=== PATIENT | male | born 1975 | race African-American/Black ===

== ENCOUNTER → 2020-01-21 | Outpatient (CLI) | payer OTHER ==
[2020-01-21 16:25] LABS: SEMEN APPEARANCE OPAQUE (OPAQUE); SEMEN VISCOSITY LIQUID (LIQUID); SEMEN VOLUME 1.3 ml (2.0-5.0); SEMEN pH 8.5 (7.0-8.0); WBC CONCENTRATION >1 M/ml (<=1 M/ml)
[2020-01-21 16:28] LABS: SPERM CONCENTRATION 8.9 M/ml (>=15.0)
== END ==
LOC: M LAB 15:11
PROVIDERS: ATTEND Physician Assistant
DX: Z31.42 Aftercare following sterilization reversal (principal)